=== PATIENT | female | born 1980 | race Caucasian/White ===

== ENCOUNTER 2019-09-29 07:54 | Outpatient (CLI) | payer OTHER ==
[2019-09-29 12:22] LABS: Hemoglobin 14.3 g/dL (12.0-16.0); Mean Corpuscular HGB CONC 33.5 g/dL (32.0-36.0); Mean Corpuscular Hemoglobin 31.7 pg (27.0-31.0); Mean Corpuscular Volume 94.6 fL (78.0-98.0); Mean Platelet Volume 7.2 fL (7.4-10.4); Platelet Count 322 thou/uL (130-400); RBC Distribution Width 11.6 % (11.5-14.5); Red Blood Cell (RBC) Count 4.52 mill/uL (4.20-5.40); White Blood Cell (WBC) Count 5.8 thou/uL (4.8-10.8)
[2019-09-29 12:35] LABS: BHCG - Serum Negative (NEGATIVE); Pregs Control Background? CLEAR/WHITE (CLR/WHITE); Pregs Control Bar Appear? YES (CONTROL BAR)
[2019-09-29 12:44] LABS: Anion Gap 10 mmol/L (10-20); BUN (Urea Nitrogen) 6 mg/dL (7.0-18.7); Calc. Creatinine Clearance 0 mL/min (70-130); Calcium 8.8 mg/dL (7.8-10.44); Carbon Dioxide 25 mmol/L (22-29); Chloride 107 mmol/L (98-107); Estimated GFR-MDRD Greater than 90; Glucose 100 mg/dL (70-105); Potassium 3.9 mmol/L (3.5-5.1); Sodium 138 mmol/L (136-145)
[2019-09-29 12:45] LABS: PTT 34.7 SEC (22.9-36.1)
[2019-09-29 12:46] LABS: Prothrombin Time 13.2 SEC (12.0-14.7)
== END 2019-09-29 07:55 | disposition home or self-care (01) ==
LOC: LABBT 07:54
PROVIDERS: ATTEND Surgery
DX: Z01.818 Encounter for other preprocedural examination (principal); M54.12 Radiculopathy, cervical region; M48.02 Spinal stenosis, cervical region
CPT/HCPCS: 80048; 84703; 85027; 85610; 85730; 93005; 93010

== ENCOUNTER 2019-09-30 06:03 | Day surgery (SDC) | payer OTHER ==
[2019-09-29 11:38] VITALS: BMI 18.8
[2019-09-30] MEDS ORDERED: Thrombin 5000 UNITS/5 ML VIAL ONE (06:35)
[2019-09-30] MEDS ORDERED: Midazolam HCl 2 mg/2 ml Vial ONE (07:00)
[2019-09-30] MEDS ORDERED: Fentanyl 100 MCG/2 ML VIAL ONE ×3 (07:22→11:34)
[2019-09-30] MEDS ORDERED: Promethazine HCl 25 MG/ML VIAL IM PRN (09:37)
[2019-09-30] MEDS ORDERED: PACU-Morphine 4MG/ML VIAL SLOW IVP PRN (09:37)
[2019-09-30] MEDS ORDERED: Morphine Sulfate 2 MG/ML SYRINGE SLOW IVP PRN (09:37)
[2019-09-30] MEDS ORDERED: Ondansetron HCl/PF 4 MG/2 ML Vial IVP PRN (09:37)
[2019-09-30] MEDS ORDERED: Promethazine HCl 25 MG/ML VIAL SLOW IVP PRN (09:37)
[2019-09-30] MEDS ORDERED: HYDROmorphone 2 MG/ML VIAL SLOW IVP PRN (09:37)
[2019-09-30] MEDS ORDERED: Rocuronium Bromide 10 MG/ML (10ML VIAL) ONE (09:40)
[2019-09-30] MEDS ORDERED: PROPOFOL 200 MG/20 ML VIAL ONE (09:40)
[2019-09-30] MEDS ORDERED: Ondansetron PF 4 MG/2 ML Vial ONE (09:40)
[2019-09-30] MEDS ORDERED: Dexamethasone 20 MG/5 ML VIAL ONE (09:40)
[2019-09-30] MEDS ORDERED: Glycopyrrolate 0.2 MG/ML 5 ML SYRINGE ONE (09:40)
[2019-09-30] MEDS ORDERED: Lidocaine 1% PF 5 ML VIAL ONE ×2 (09:40)
[2019-09-30] MEDS ORDERED: PHENYLEPHRINE-NS 100 MCG/ML 10 ML SYRINGE ONE (09:40)
[2019-09-30] MEDS ORDERED: Esmolol 100 MG/10 ML VIAL ONE (09:40)
[2019-09-30] MEDS ORDERED: Fleet Enema 133 ML BOT PR PRN (09:49)
[2019-09-30] MEDS ORDERED: Milk Of Magnesia 30 ML UDCUP PO PRN (09:49)
[2019-09-30] MEDS ORDERED: Ondansetron PF 4 MG/2 ML Vial IVP PRN (09:49)
[2019-09-30] MEDS ORDERED: Mag-Al 1200 mg/1200 mg/30 ML UDCUP PO PRN (09:49)
[2019-09-30] MEDS ORDERED: Bisacodyl 10 MG SUPP PR PRN (09:49)
[2019-09-30] MEDS ORDERED: Acetaminophen 325 MG TAB PO PRN (09:49)
[2019-09-30] MEDS ORDERED: Acetaminophen/Codeine 30-300mg Tablet PO PRN (09:49)
[2019-09-30] MEDS ORDERED: HYDROmorphone 2 MG/ML VIAL ONE (09:49)
[2019-09-30] MEDS ORDERED: Morphine 4 MG/ML VIAL ONE (10:42)
--- NOTE | 2019-09-30 11:51 | OP ---
DATE OF PROCEDURE: 09/30/2019 [employer] SUPERVISOR: Maty Muniz PA-C LOCATION: OR 12. PREPROCEDURE DIAGNOSES: Neck and arm pain with cervical disk extrusions, C5-C6 and C6-C7, with cervical radiculopathy. POSTPROCEDURE DIAGNOSES: Neck and arm pain with cervical disk extrusions, C5-C6 and C6-C7 with cervical radiculopathy. PROCEDURES PERFORMED: 1. Anterior C5-C6 and C6-C7 diskectomies for decompression of spinal cord and nerve roots. 2. Placement of interbody spacer, C5-C6 and C6-C7, packed with local bone autograft, obtained from the same wound and allograft for initiation of arthrodesis, C5-C6 and C6-C7. 3. Anterior cervical plate and screw fixation C5, C6, and C7. 4. Use of operative microscope for microdissection. DESCRIPTION OF PROCEDURE: After informed consent was obtained from the patient, the patient was brought to the OR. Proper patient, pause, and identification were carried out. She was placed under excellent general endotracheal anesthesia and positioned supine on the OR table. All appropriate points were padded. We identified an anterior elver via the right side of the anterior neck that would allow for approach to the anterior C5, C6, C7 segments and intervening disks. A small incision was drawn out. This area was sterilely cleansed, prepared, and draped. Proper patient, pause, and identification were carried out. The wound was then opened with a combination of sharp, monopolar, and blunt dissection, proceeded lateral to the tracheoesophageal bundle medial to the right carotid sheath. We identified the prevertebral layer of deep cervical fascia and the longus colli muscles and these were swept laterally. Retractors were placed. Localization film confirmed our area of interest. We then placed distraction screws in C5-C6 and the microscope was brought in for microdissection. Diskectomy at C5-C6 was performed with excellent decompression of the common dural tube and bilateral C6 nerve roots. The endplates were prepared and interbody spacer of appropriate dimension packed with graft was placed at C5-C6 for arthrodesis initiation. Then released distraction. The same procedure was performed at C6-C7 with diskectomy and decompression of spinal cord and C7 nerve roots with preparation of the endplates. We were then placed a spacer packed with graft again at C6-C7 for initiation of arthrodesis. Copious irrigation occurred throughout as did maximizing hemostasis. The microscope was removed. Anterior cervical plate and screw fixation at C5, C6, C7 then occurred. The wound was then closed in anatomic layers over a drain. The patient then emerged from anesthesia. Job ID: [id number]
[2019-09-30] MEDS: HYDROcodone/Acetaminophen 7.5/325 mg Tablet PO PRN ×2 (12:29→17:22)
[2019-09-30] MEDS: Sodium Chloride 0.9% 1,000 ML IV SCH (12:32)
[2019-09-30] MEDS: Cyclobenzaprine 10 MG TAB PO PRN ×2 (14:49→22:26)
[2019-09-30] MEDS: CEFAZOLIN 2 GM in Premix Bag 1 BAG IVPB SCH ×2 (14:49→22:21)
[2019-09-30] MEDS: Morphine 2 MG/ML SYRINGE SLOW IVP PRN ×3 (16:48→21:04)
[2019-09-30] MEDS ORDERED: Doxepin HCl 25 MG CAP PO SCH (21:00)
[2019-09-30] MEDS: ALPRAZolam 1 MG TAB PO SCH (21:04)
[2019-10-01] MEDS: HYDROcodone/Acetaminophen 7.5/325 mg Tablet PO PRN ×3 (03:03→14:36)
[2019-10-01] MEDS: Sodium Chloride 0.9% 1,000 ML IV SCH ×2 (03:26→14:45)
[2019-10-01] MEDS: CEFAZOLIN 2 GM in Premix Bag 1 BAG IVPB SCH ×2 (06:06→15:24)
--- NOTE | 2019-10-01 08:10 | PRG ---
DATE OF SERVICE: 10/01/2019 Ms. Booth is postoperative day 1 from C5 through C7 ACDF. She complains of neck pain, but no arm pain. She is resting comfortably. Her drain output has been minimal. We will work on pain control today. Job ID: [id number]
[2019-10-01] MEDS: ALPRAZolam 1 MG TAB PO SCH (08:46)
[2019-10-01] MEDS: Cyclobenzaprine 10 MG TAB PO PRN ×2 (08:47→14:37)
[2019-10-01 13:33] VITALS: BP 96/63; TEMP 97.9
--- NOTE | 2019-10-01 17:28 | PRG ---
DATE OF SERVICE: 10/01/2019 Ms. Booth is postop day #1 from C5-C7 ACDF. The patient reports that she is experiencing pain in her throat and back of her neck, however she denies any arm pain. She has been on a full liquid diet and swallowing without difficulty. She states that she has been able to ambulate to and from the restroom and has been urinating without difficulty. Total drain output has been 5 mL. Patient states that she wishes to be discharged home today because she would be more comfortable at home. On exam, the patient is awake, alert, and appropriate. She has good movement and excellent strength throughout her upper and lower extremities bilaterally. She has no difficulty speaking, although her voices somewhat hoarse. Plan at this time is for the patient to be discharged home today. Her cervical TANNER drain was removed easily without any complications. Her wound was re-covered with clean, dry gauze and Mediport tape. Discussed with the patient that she may shower 24 hours after drain removal, which would be around 12:30 p.m tomorrow. Discussed post-op restrictions. The patient states that she has experienced most pain relief with taking [place] and Flexeril, therefore she was provided with these medications upon discharge home. Discussed the patient should continue with full liquid diet over the next 1 to 2 weeks until her swallowing progresses. She will follow up in clinic in 2 1/2 weeks for her postop office visit. She will call sooner if she has any questions or concerns. Job ID: [id number] [id number]
== END 2019-10-01 15:05 | disposition home or self-care (01) ==
LOC: SDC 06:03 → SURG B 12:25 → SDC 10-01 15:05
PROVIDERS: ATTEND Surgery
PROC: 0RG20A0 Fusion of 2 or more Cervical Vertebral Joints with Interbody Fusion Device, Anterior Approach, Anterior Column, Open Approach (ICD-10-PCS; principal; 2019-10-01)
PROC: 0RG2070 Fusion of 2 or more Cervical Vertebral Joints with Autologous Tissue Substitute, Anterior Approach, Anterior Column, Open Approach (ICD-10-PCS; principal; 2019-10-01)
DX: M50.122 Cervical disc disorder at C5-C6 level with radiculopathy (principal); M48.02 Spinal stenosis, cervical region; Z88.2 Allergy status to sulfonamides; Z88.5 Allergy status to narcotic agent; Z88.7 Allergy status to serum and vaccine; Z79.899 Other long term (current) drug therapy
CPT/HCPCS: 76000; C1776; J0690; J1100; J1170; J2001; J2250; J2270; J2405; J2704; J3010; J3490